=== PATIENT | male | born 2005 | race Caucasian/White ===

== ENCOUNTER 2024-07-29 06:30 | Day surgery (SDC) | payer OTHER ==
[~2024-07-29] VITALS: Ht 185.4 cm; Wt 95.3 kg
[~2024-07-29 06:30] MED LIST: LACTATED RINGER'S 1,000 ML IV SCH; MOTRIN IB200 M1 PO; TYLENOL325 MG PO
[2024-07-29] MEDS ORDERED: ADVIL200 M1 PO (06:54)
[2024-07-29] MEDS ORDERED: CEFAZOLIN SODIUM 2 GM/20 ML SYR IV SCH (07:00)
[2024-07-29] MEDS ORDERED: TRANEXAMIC ACID IN NACL,ISO-OS 1,000 MG/100 ML PIGGYBACK IV SCH (07:00)
[2024-07-29] MEDS ORDERED: IBLOOD GLUCOSE TEST STRIP 1 EA TEST VI PRN ×2 (07:00→08:15)
[2024-07-29] MEDS ORDERED: LIDOCAINE HCL 1% 5 ML SDV INJ ONE (07:00)
[2024-07-29 07:19] LABS: BASOPHILS 0.8 % (0-2); BASOPHILS, ABSOLUTE 0.1 %; EOSINOPHILS 8.8 % (0-6); EOSINOPHILS, ABSOLUTE 0.8; HEMATOCRIT 37.2 % (35.0-50.0); LYMPHOCYTES 27.6 % (24-44); LYMPHOCYTES, ABSOLUTE 2.4; MCH 30.5 (27-36); MCHC 34.8 g/dl (30-36); MCV 87.6 fl (81-99); MONOCYTES 6.9 % (0-12); MONOCYTES, ABSOLUTE 0.6; NEUTROPHILS 55.9 % (39-80); NEUTROPHILS, ABSOLUTE 4.9; PLATELET COUNT 232 K/uL (140-440); RBC 4.25 M/ul (4.3-5.7); RDW 12.9 (10.5-15.0)
--- NOTE | 2024-07-29 07:27 | NUR ---
PT NOT AVAILABLE FOR VISIT. PROVIDED PRAYER.
[2024-07-29 07:34] LABS: ALBUMIN 3.2 g/dL (3.4-5.0); ALBUMIN/GLOBULIN RATIO 1.28 (1.1-2.4); ANION GAP 17.3 (7-21); BILIRUBIN, TOTAL 0.4 mg/dL (0.2-1.0); BUN/CREATININE RATIO 21.87 (6.0-28.6); CALCIUM 8.3 mg/dL (8.5-10.1); CREATININE, SERUM 0.64 mg/dL (0.70-1.30); POTASSIUM 4.3 mmol/L (3.5-5.1); PROTEIN, TOTAL 5.7 g/dL (6.4-8.2)
[2024-07-29] MEDS ORDERED: MIDAZOLAM HCL 2 MG/2 ML VIAL ONE (08:09)
[2024-07-29] MEDS ORDERED: LIDOCAINE HCL 2% 5 ML SDV ONE ×2 (08:09→09:18)
[2024-07-29] MEDS ORDERED: Ropivacaine HCl 0.5% 30 ML VIAL ONE (08:09)
[2024-07-29] MEDS ORDERED: DEXAMETHASONE SOD PHOS 4 MG/ML VIAL ONE (08:09)
[2024-07-29] MEDS ORDERED: ondansetron HCL 4 MG/2 ML VIAL IV PRN (08:15)
[2024-07-29] MEDS ORDERED: PROCHLORPERAZINE EDISYLATE 10 MG/2 ML VIAL IV PRN (08:15)
[2024-07-29] MEDS ORDERED: NALOXONE HCL 0.4 MG SYR IV PRN (08:15)
[2024-07-29] MEDS ORDERED: fentaNYL citrate 50 MCG/ML SDV IV PRN (08:15)
[2024-07-29] MEDS ORDERED: droPERidol 5 MG/2 ML VIAL IV PRN (08:15)
[2024-07-29] MEDS ORDERED: HYDROmorphone HCL 1 MG/ML SYR IV PRN (08:15)
[2024-07-29 08:18] VITALS: BP 129/56
[2024-07-29] MEDS ORDERED: ondansetron HCL 4 MG/2 ML VIAL ONE (09:18)
[2024-07-29] MEDS ORDERED: propofoL 200 MG/20 ML VIAL ONE (09:18)
[2024-07-29] MEDS ORDERED: fentaNYL citrate 100 MCG/2 ML VIAL ONE (09:18)
[2024-07-29] MEDS ORDERED: KETOROLAC TROMETHAMINE 15 MG/ML VIAL IV PRN (09:30)
[2024-07-29] MEDS ORDERED: HYDROCODONE/ACETA 7.5/325 TAB PO PRN (09:30)
[2024-07-29] MEDS ORDERED: TRANEXAMIC ACID 1,000 MG/10 ML AMP ONE (10:19)
[2024-07-29] MEDS ORDERED: LACTATED RINGER'S 1,000 ML IV ONE (10:38)
[2024-07-29] MEDS ORDERED: HYDROCODON-ACE1 EA11 PO (10:59)
[2024-07-29] MEDS ORDERED: KETOROLAC TROMETHAMINE 30 MG/ML VIAL ONE (11:00)
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
[2024-07-29 11:59] VITALS: BP 136/77
[2024-07-29 13:00] VITALS: BP 129/62
--- NOTE | 2024-07-29 14:03 | NUR ---
1157 PT ARRIVED TO DAY SURGERY FROM PACU VIA STREACHER. PT AWAKE AND ORIENTED. VITALS TAKEN. IV ASSESSED. PT REPORTS TOLERABLE 4/10 PAIN. PT REPORTS NO NAUSEA. PT MOTHER IN ROOM. PT HAS CALL LIGHT WITHIN REACH. PT HAS SNACKS AND WATER. 1220 PT HAS TOLERATED PO SNACKS AND WATER. PAIN MEDICATION GIVEN PER EMAR. 1305 DISCHARGE INFORMATION GONE OVER WITH PATIENT AND MOM. NO QUESTIONS AT THIS TIME. PT ABLE TO AMBULATE TO BATHROOM AND VOID 550 MLS OF URINE. PT ABLE TO AMBULATE BACK TO ROOM. 1310 IV DISCONTINUED FOR DISCHARGE. 1315 PT DISCHARGED FROM DAY SURGERY VIA WHEELCHAIR TO THE FRONT OF THE HOSPITAL TO PT'S MOM'S CAR. PT MOM HAS DISCHARGE INFORMATION IN HAND.
[2024-07-29] MEDS ORDERED: SEVOFLURANE 250 ML BTL INH ONE (14:23)
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
== END 2024-07-29 13:15 | disposition home or self-care (01) ==
LOC: DS 06:30
PROVIDERS: ATTEND Specialist
PROC: 0PSB04Z Reposition Left Clavicle with Internal Fixation Device, Open Approach (ICD-10-PCS; principal; 2024-07-29 09:25)
DX: S42.022A Displaced fracture of shaft of left clavicle, initial encounter for closed fracture (principal); X58.XXXA Exposure to other specified factors, initial encounter; G89.18 Other acute postprocedural pain; Z79.899 Other long term (current) drug therapy
CPT/HCPCS: 00450; 36415; 64415; 73000; 76942; 80053; 85025; A9270; C1713; J0690; J1100; J1171; J1885; J2003; J2250; J2405; J2704; J2795; J3010; J7121